=== PATIENT | male | born 1940 | race Caucasian/White ===

== ENCOUNTER 2022-01-28 16:16 | Emergency (ER) | payer OTHER, SELFPAY ==
[2022-01-28] VITALS (9 sets, daily range): BP systolic 111–122; BP diastolic 41–81; PULSE 85–161; RESP 13–20; TEMP 36.4; O2SAT 97–100
--- NOTE | ~2022-01-28 | CT_ITS ---
EXAMINATION: CTA chest PE protocol DATE: 01/28/2022 18:05 INDICATION: Tachycardia, hypotension TECHNIQUE: Computed tomography angiography (CTA) of the chest was performed with 100 mL Omnipaque-350 intravenous contrast timed to evaluate the pulmonary arteries. Coronal maximum intensity projection 3D-reconstructions were created by the technologist. Automated exposure control and iterative reconst ruction technique were employed. Exam dose: 352.48 mGy-cm total exam DLP. COMPARISON: 01/28/2022 AP and lateral chest FINDINGS: There is diagnostic contrast enhancement of the pulmonary arteries and no evidence of pulmo nary embolism. Normal heart size. Coronary artery calcification. No pericardial effusion. Borderline thoracic aortic aneurysm. No hilar or mediastinal mass lesion or lymphadenopathy. No pulmonary infiltrate or consolidation. There is minimal atelectasis in the dependent right lower l obe. No pulmonary suspicious mass is noted. Small sliding hiatal hernia. Normal morphology of the adrenal glands. Subtle indeterminate area of diminished attenuation of the anterolateral hepatic dome, measuring up t o 4 cm dimension on axial view. Calcified splenic granulomas. Thoracic kyphosis. There is anterior fusion at T7-T8 and T9-10. Degenerative change of the lower cervical and thoracic a nd lumbar spine. IMPRESSION: No evidence of pulmonary embolism Reviewed, dictated and finalized at [facility]. Reviewed, dictated and finalized at [facility].
--- NOTE | ~2022-01-28 | XR_ITS ---
EXAMINATION: XR chest 2V DATE: 01/28/2022 16:37 INDICATION: Tachycardia. TECHNIQUE: Frontal and lateral views of the chest were obtained. COMPARISON: None. FINDINGS: The chest demonstrates clear lungs without pneumonia, pleural effusion, or pneumothorax. Th e heart size is normal. There is chronic anterior wedging of multiple thoracic vertebral bodies. IMPRESSION: 1. No acute cardiopulmonary disease. Reviewed, dictated and finalized at [facility].
--- NOTE | 2022-01-28 16:18 | ECG_ITS ---
Measurements Intervals [place] Rate: 146 P: ID: 0 QRS: -8 QRSD: 87 T: 58 QT: 266 QTc: 415 Interpretive Statements ATRIAL FLUTTER/TACHYCARDIA WITH RAPID VENTRICULAR RESPONSE ABNORMAL ECG Electronically Signed On 01-29-2022 9:21:47 CDT by Curt Gonzalez M.D.
--- NOTE | 2022-01-28 16:39 | ED.ARRPALP ---
HPI - Arrhythmia/Palpitations General Chief Complaint: Arrhythmia/Palpitations Stated Complaint: rapid heart beat Time Seen by Provider: 01/28/22 16:28 Source: patient History of Present Illness HPI narrative: Patient presents with palpitations. Reports he was sitting down when he felt his heart rate going fast so he came to the ER for evaluation. Denies any chest pain lightheadedness dizziness or shortness of breath. Denies recent recent fevers, cough, congestion denies any recent hospitalizations prior history of blood clots or prior cardiac history. Related Data Allergies Allergy/AdvReac Type Severity Reaction Status Date / Time No Known Allergies Allergy Verified 09/29/21 10:20 Review of Systems Review of Systems: CONSTITUTIONAL: Denies fever, chills, or sweats. EYES: Denies visual changes, redness, or discharge. ENT: Denies rhinorrhea, congestion, sore throat, or otalgia. CARDIOVASCULAR: Denies chest pain, palpitations, or edema. RESPIRATORY: Denies cough or dyspnea. GASTROINTESTINAL: Denies abdominal pain, nausea, vomiting, or diarrhea. GENITOURINARY: Denies dysuria or hematuria. SKIN: Denies rash or itching. MUSCULOSKELETAL: Denies back pain, joint pain, or myalgia. NEUROLOGIC: Denies headache, numbness, dizziness, or weakness. PSYCHIATRIC: Denies anxiety or depression. All systems reviewed & are unremarkable except as noted in HPI and below PMFSH Past Medical History Medical History DJD (degenerative joint disease) Vitamin D insufficiency Family History Family History Father Family history of heart disease in male family member before age 55, Onset Age: 79 Social History Social History Smoking status: Never smoker Alcohol intake: current Exam Narrative: GENERAL: Well-appearing, well-nourished, and in no acute distress. HEAD: Normocephalic, atraumatic. EYES: PERRLA and EOMI. ENT: Nares clear, no rhinorrhea or epistaxis. Mucous membranes moist. NECK: Supple. No masses. No JVD CHEST: Clear to auscultation. No respiratory distress. No wheezes rales or rhonchi HEART: Regular tachycardia no murmur heard. Normal peripheral pulses. ABDOMEN: Soft, nontender, nondistended, normal active bowel sounds. EXTREMITIES: Normal range of motion. No edema. SKIN: Warm, dry, no rash. NEURO: No focal deficits. Alert and oriented x3. PSYCH: Normal mood and affect. Course Reevaluation(s) Reevaluation #1: Attempted adenosine cardioversion. EKG was consistent with an SVT. Attempted vagal maneuvers which were unsuccessful. Discussed the procedure and consent was obtained. Patient was kept on the hog ribber. 6 mg of diltiazem no change noted on the monitor attempted 12 mg and adenosine which was effective appeared to be a sinus rhythm underneath our heart rate returned to the 140s. Attempted another 12 mg of adenosine again heart rate showed consistent with a sinus rhythm however his heart rate returned to the 140s Date: 01/28/22 Time: 17:37 Reevaluation #2: Patient felt much improved and back to his usual self after Lopressor. Case cussed with Dr. Gonzalez cardiology on-call given patient converted and is comfortable with outpatient monitoring. Patient is also comfortable with outpatient monitoring. Date: 01/28/22 Time: 19:10 Vital Signs Vital signs: Vital Signs Temperature 36.4 C 01/28/22 16:19 Pulse Rate 161 H 01/28/22 16:19 Respiratory Rate 16 01/28/22 16:19 Blood Pressure 111/76 01/28/22 16:19 Pulse Oximetry 99 01/28/22 16:19 Temperature 36.4 C 01/28/22 16:19 Pulse Rate 88 01/28/22 19:01 Respiratory Rate 19 01/28/22 19:01 Blood Pressure 113/41 L 01/28/22 19:01 Pulse Oximetry 98 01/28/22 19:01 MDM - Arrhythmia/Palpitations MDM Narrative Medical decision making narrative: H&P as above, vs initia
[2022-01-28 17:01] LABS: Basophils Absolute Auto 0.1 K/mm3 (0.0-0.1); Basophils Percent Auto 0.7 % (0.2-1.2); Hematocrit 44.2 % (42.0-52.0); Hemoglobin 16.1 g/dL (14.0-18.0); Immature Granulocyte Absolute 0.02 K/mm3 (0.00-0.031); Immature Granulocyte Percent A 0.3 % (0-0.5); Lymphocytes Absolute Auto 1.09 K/mm3 (0.9-3.2); Lymphocytes Percent Auto 15.7 % (18.3-44.2); Mean Corpuscular HGB Conc 36.4 g/dl (32-36); Mean Corpuscular Hemoglobin 34.1 pg (26-34); Mean Corpuscular Volume 93.6 fl (80-100); Mean Platelet Volume 10.4 fl (7.4-10.4); Monocytes Absolute Auto 0.6 K/mm3 (0.1-0.6); Monocytes Percent Auto 8.9 % (2.6-8.5); Neutrophils Absolute Auto 5.2 K/mm3 (1.3-6.7); Neutrophils Percent Auto 74.4 % (45.5-73.1); Platelet Count Result 173 k/mm3 (150-375); Red Blood Count 4.72 M/mm3 (4.6-6.20); White Blood Count 6.9 K/mm3 (4.5-10.0)
[2022-01-28 17:09] LABS: Prothrombin Time 13.1 Seconds (11.1-14.7)
[2022-01-28 17:10] LABS: Alanine Aminotransferase 22 U/L (4-50); Albumin Level 4.5 g/dL (3.5-5.1); Alkaline Phosphatase 42 U/L (38-126); Anion Gap 7 mmol/L (8-16); Aspartate Amino Transferase 30 U/L (17-59); Bilirubin,Total 0.7 mg/dL (0.2-1.3); Blood Urea Nitrogen 29 mg/dL (9-20); Calcium 9.3 mg/dL (8.4-10.2); Carbon Dioxide 27 mmol/L (22-30); Chloride 104 mmol/L (98-107); Estimated Glomerular Filt Rate > 60; Glucose 121 mg/dL (65-110); Lipase 686 U/L (23-300); Partial Thromboplastin Time 27.9 SECONDS (22.3-36.8); Potassium 4.3 mmol/L (3.4-5.0); Sodium 138 mmol/L (137-145)
[2022-01-28] MEDS: ASPIRIN 81 MG CHEWABLE TABLET 324 MG PO (17:16)
[2022-01-28 17:21] LABS: Troponin I < 0.012 ng/mL (0.000-0.034)
[2022-01-28] MEDS: ADENOSINE IV SOLN 6 MG/2 ML VIAL IV PUSH (17:33)
[2022-01-28] MEDS: ADENOSINE IV SOLN 6 MG/2 ML VIAL 12 MG (17:35)
[2022-01-28] MEDS: SODIUM CHLORIDE 0.9% IV 1,000 ML 999 ML (17:40)
[2022-01-28] MEDS: ADENOSINE IV SOLN 6 MG/2 ML VIAL 12 MG IV PUSH (17:41)
--- NOTE | 2022-01-28 17:58 | PC.NURSE ---
Dr. Geiger at bedside for adenosine iv push. Crash cart at bedside. Pt connected to monitor. Pt pre vitals 128/84 heart rate 143. Pt given 6mg Iv adenosine at 1734, pt connected to IV fluids for bolus. No change in heart rate. Dr. Geiger ordered 12mg adenosine IV push. vitals 129/94 post 6mg and heartrate 146. 12mg adenosine push given at 1736, heart rate 140 after. 130/[address] Geiger ordered 12mg IV push for 3rd dose. Pt still stable at this time, no change in mentation or heart rate. 12mg IV push adenosine give at 1741. 132/71 BP and 143 heart rate. Still no change in pt condition. Pt remains stable, no complaints of chest pain or rhythm change. Dr. Geiger informed pt we would still monitor. IV metoprolol ordered.
[2022-01-28] MEDS: METOPROLOL TARTRATE INJ 5 MG/5 ML VIAL IV PUSH (18:15)
[2022-01-28] MEDS: SODIUM CHLORIDE 0.9% IV 1,000 ML 999 ML IV CONT (18:29)
--- NOTE | 2022-01-28 18:47 | ECG_ITS ---
Measurements Intervals [place] Rate: 86 P: 52 [place]: 223 QRS: -5 QRSD: 72 T: 21 QT: 316 QTc: 380 Interpretive Statements SINUS RHYTHM WITH FIRST DEGREE AV BLOCK LOW QRS VOLTAGE IN PRECORDIAL LEADS [QRS DEFLECTION < 1.0 mV IN CHEST LEADS] CANNOT RULE OUT SEPTAL MYOCARDIAL INFARCTION VERSUS LEAD PLACEMENT ABNORMAL ECG Electronically Signed On 01-29-2022 9:25:25 CDT by Curt Gonzalez M.D.
== END 2022-01-28 19:40 | disposition home or self-care (01) ==
PROVIDERS: Emergency Provider Emergency Medicine; PCP Emergency Medicine
DX: I47.1 Supraventricular tachycardia (principal); I44.0 Atrioventricular block, first degree; R94.31 Abnormal electrocardiogram [ECG] [EKG]
CPT/HCPCS: 36415; 71046; 71275; 80053; 83690; 84484; 85025; 85610; 85730; 93005; 96361; 96374; 96375; 99284; A9270; J0153; J7030; Q9967

== ENCOUNTER 2023-03-17 11:21 | Emergency (ER) | payer OTHER, SELFPAY ==
--- NOTE | ~2023-03-17 | CT_ITS ---
EXAMINATION: CT abdomen pelvis w con DATE: 03/17/2023 14:27 INDICATION: Low abdominal pain. Nausea and vomiting. TECHNIQUE: Computed tomography (CT) of the abdomen and pelvis was performed with 100 mL Omnipaque 350 intravenous contrast. Automated exposure control and iterative reconstruction technique were employe d. The dose-length product was 382.34 mGy-cm. COMPARISON: Chest CT 01/28/2022 FINDINGS: The visualized portions of the lung bases demonstrate mild atelectasis. No pleural effusion . The heart size is normal. There are coronary artery calcifications. No pericardial effusion. There is a small sliding hiatal hernia. There is a 5.0 cm mass in right hepatic lobe with interrupted perip heral puddling of contrast, consistent with a hemangioma. Calcifications in the spleen are consistent with old granulomatous disease. The gallbladder, pancreas, and adrenal glands are normal. There is m ild right hydronephrosis and hydroureter. There is mild left hydronephrosis and hydroureter. The blad thomas is distended. The prostate is moderately enlarged. There is diverticulosis of the colon without e vidence of diverticulitis. There are no dilated loops of bowel. The appendix is normal. 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 There are no pathologically enlarged lymph nodes. There i s no free intraperitoneal fluid. There are innumerable small scattered sclerotic lesions in the bones . There is severe thoracic and lumbar spondylosis. There is a chronic compression fracture of T10. IMPRESSION: 1. Widespread sclerotic lesions of bone, new from 01/28/2022, consistent with metastatic disease. 2. Mild bilateral hydronephrosis and hydroureter. Reviewed, dictated and finalized at location [facility]. IMPRESSION: 1. Widespread sclerotic lesions of bone, new from 01/28/2022, consistent with me tastatic disease. 2. Mild bilateral hydronephrosis and hydroureter.
[2023-03-17 11:31] VITALS: BP 152/97; PULSE 73; RESP 16; TEMP 36.1; O2SAT 100
[2023-03-17 11:52] LABS: Basophils Percent Auto 0.4 % (0.2-1.2); Hematocrit 44.1 % (42.0-52.0); Immature Granulocyte Absolute 0.02 K/mm3 (0.00-0.031); Immature Granulocyte Percent A 0.2 % (0-0.5); Lymphocytes Absolute Auto 0.43 K/mm3 (0.9-3.2); Lymphocytes Percent Auto 4.6 % (18.3-44.2); Mean Corpuscular Hemoglobin 33.2 pg (26-34); Mean Corpuscular Volume 97.6 fl (80-100); Mean Platelet Volume 10.8 fl (7.4-10.4); Monocytes Absolute Auto 0.4 K/mm3 (0.1-0.6); Monocytes Percent Auto 4.2 % (2.6-8.5); Neutrophils Absolute Auto 8.4 K/mm3 (1.3-6.7); Neutrophils Percent Auto 90.6 % (45.5-73.1); Platelet Count Result 151 k/mm3 (150-375); Red Blood Count 4.52 M/mm3 (4.6-6.20); Red Cell Distribution Width 12.6 % (11.5-14.5); White Blood Count 9.3 K/mm3 (4.5-10.0)
[2023-03-17 11:57] LABS: Anion Gap 7 mmol/L (8-16); Blood Urea Nitrogen 13 mg/dL (9-20); Calcium 9.3 mg/dL (8.4-10.2); Carbon Dioxide 29 mmol/L (22-30); Chloride 104 mmol/L (98-107); Estimated CRCL calculation 55 ml/min; Estimated Glomerular Filt Rate > 60; Glucose 134 mg/dL (65-110); Potassium 4.1 mmol/L (3.4-5.0); Sodium 140 mmol/L (137-145)
[2023-03-17 11:58] LABS: Alanine Aminotransferase 33 U/L (6-50); Albumin Level 4.8 g/dL (3.5-5.1); Alkaline Phosphatase 213 U/L (38-126); Aspartate Amino Transferase 35 U/L (17-59); Bilirubin,Total 1.1 mg/dL (0.2-1.3); Lipase 220 U/L (23-300)
[2023-03-17 12:16] LABS: Appearance Urine Clear (Clear); Blood Urine 2+ (Negative); Color Urine Yellow (Yellow); Glucose Urine UA Negative (Negative); Ketones Urine Negative (Negative); Nitrate Urine Negative (Negative); Protein Urine 1+ mg/dL (Negative); Specific Grav Ur 1.018 (1.001-1.035); pH Urine 8.5 (5.0-9.0)
[2023-03-17 12:17] LABS: Bacteria Urine None Seen /hpf; Bilirubin Urine Negative (Negative); Leukocyte Esterase Ur Negative LEU/UL (Negative); Non Pathogenic Casts 0-2; RBC Urine 51-100 /hpf (0-2); Squamous Epithelial Cell Urine None seen /hpf (Few); Urobilinogen Urine 0.2 mg/dL (<2.0); WBC Urine 0-5 /hpf
[2023-03-17 12:19] LABS: Add Urine Microscopic? YES
--- NOTE | 2023-03-17 13:45 | ED.ABDPAIN ---
HPI - Abdominal Pain General Chief Complaint: Abdominal Pain Stated Complaint: abd pain Time Seen by Provider: 03/17/23 13:05 History of Present Illness HPI narrative: 83-year-old male presented to the emergency department for evaluation of bilateral lower abdominal pain. Patient states pain started approximately 930 last night. Patient does report associated nausea and vomiting. Patient states he normally has bowel movements every 2 to 3 days but has not been passing any stool since the pain started, this is not abnormal for him. Patient states he has not been passing flatus. Patient denies any prior history of abdominal surgeries. Patient denies any prior history of small bowel obstruction. Patient denies any prior history of kidney stones and denies any current hematuria or pain with urination. Related Data Home Medications Medication Instructions Recorded Confirmed apixaban 5 mg tablet (Eliquis) 5 mg PO .QD 03/30/22 Allergies Allergy/AdvReac Type Severity Reaction Status Date / Time No Known Allergies Allergy Verified 09/28/22 10:28 Review of Systems Review of Systems: All systems reviewed & are unremarkable except as noted in HPI and below PMFSH Past Medical History Medical History DJD (degenerative joint disease) Vitamin D insufficiency Family History Family History Father Family history of heart disease in male family member before age 55, Onset Age: 79 Social History Social History Smoking status: Never smoker Second hand tobacco smoke exposure: No Alcohol intake: current Substance use: unknown Exam Narrative: APPEARANCE: Well appearing, no pain, no distress, well-nourished. HEAD: normocephalic, atraumatic. EYES: PERRLA/EOMI, conjunctivae clear. NOSE: Normal no drainage NECK: Supple. No adenopathy, no masses. RESPIRATORY: Airway patent, respirations nonlabored. Clear to auscultation bilaterally, no rales, rhonchi, wheezing. CARDIOVASCULAR: Regular rate and rhythm without murmurs rubs or gallops. ABDOMINAL: Soft, nondistended normal bowel sounds minor tenderness to bilateral lower abdomen. MUSCULOSKELETAL: Moves all extremities. Strength/ROM intact, No edema, No calf tenderness. NEURO: Alert. Cranial nerves II through XII intact. Good gait. Good coordination SKIN: Warm, dry. Normal Color Course Course Emergency Course: 83-year-old male presented the emergency department for evaluation of lower abdominal pain. Patient was afebrile with no leukocytosis. Patient's chemistries were similar to his baseline. UA did show some hematuria with no underlying evidence of infection. CT scan did show widespread sclerotic lesions of bone, new from 01/28/2022, consistent with metastatic disease, along with mild bilateral hydronephrosis and hydroureter. Patient denies any prior history of underlying cancer. Patient family are updated the results of the CT scan showing the metastatic lesions. Patient did feel improved with treatment in the emergency department and states his abdominal pain is significantly improved and he is comfortable to plan with discharge and close follow-up. I talked to the patient's primary care physician and the primary care physician will help to schedule additional outpatient studies to further evaluate the metastatic lesions. Patient was also referred to urology for the enlarged prostate and hydronephrosis. On bedside bladder scan patient had no significant postvoid residual urine. Patient was started on Flomax while in the ED. All questions and concerns were addressed and patient family are comfortable with the plan for discharge and close follow-up Vital Signs Vital signs: Vital Signs Temperature 96.9 F L 03/17/23 11:31 Pulse Rate 73 03/17/23 11:31 Respiratory Rate 16 03/17/23 11
[2023-03-17] MEDS: ONDANSETRON INJ 4 MG/2 ML VIAL IV PUSH (14:06)
[2023-03-17] MEDS: HYDROmorphone HCL INJ (*CRX) 1 MG/ML SYR 0.5 MG IV PUSH (14:06)
[2023-03-17] MEDS: TAMSULOSIN HCL 0.4 MG CAPSULE PO (16:25)
== END 2023-03-17 16:29 | disposition home or self-care (01) ==
PROVIDERS: Emergency Medicine; Emergency Provider Emergency Medicine; PCP Emergency Medicine
DX: N40.0 Benign prostatic hyperplasia without lower urinary tract symptoms (principal); R10.32 Left lower quadrant pain; R10.31 Right lower quadrant pain; M89.9 Disorder of bone, unspecified; E55.9 Vitamin D deficiency, unspecified; Z79.01 Long term (current) use of anticoagulants; N13.30 Unspecified hydronephrosis
CPT/HCPCS: 36415; 74177; 80053; 81001; 83690; 85025; 96374; 96375; 99284; A9270; J1170; J2405; Q9967

== ENCOUNTER 2023-03-30 12:08 | Outpatient (CLI) | payer OTHER, SELFPAY ==
--- NOTE | ~2023-03-30 | PE_ITS ---
EXAMINATION: PET skull to mid thigh DATE: 03/30/2023 14:13 INDICATION: Abnormal findings on diagnostic imaging with widespread sclerotic lesions of bone consist ent with metastatic disease on prior CT of the abdomen and pelvis. TECHNIQUE: Blood glucose level was 112 mg/dL. 9.69 mCi of 18-fluorodeoxyglucose (18-FDG) was administ ered i.v. Low dose computed tomography (CT) images were acquired from the base of the brain to the pr oximal thighs for attenuation correction and anatomic localization. Positron emission tomography (PET ) images were acquired in the same distribution beginning 54 minutes after injection. Images includin g fused PET/CT images were reconstructed in axial, coronal, and sagittal planes. Automated exposure c ontrol technique was employed. The dose-length product was 516.08mGy-cm. COMPARISON: None FINDINGS: Head/neck: There is symmetric increased activity in the oral cavity, palatine tonsils, laryngeal muscles and ocu lar muscles without CT correlate, likely physiologic. No pathologically enlarged or FDG avid cervical lymphadenopathy. Chest: Calcified right lower lobe nodule and calcified right hilar and mediastinal lymph nodes consistent wi th old granulomatous disease. Mild dependent atelectasis in the bilateral lower lobes. No suspicious pulmonary nodules, pneumonia, pulmonary edema or pleural effusion. Heart size is normal. Atherosclero tic coronary artery calcifications. No pericardial effusion. Ectatic ascending thoracic aorta measuri ng up to 4.2 cm in maximal diameter. No pathologically enlarged or FDG avid thoracic lymphadenopathy. Abdomen/pelvis/proximal thighs: Physiologic renal accumulation and excretion of FDG activity in the kidneys, bladder and along portio ns of ureters. There is mild to moderate bilateral hydroureteronephrosis which suggests bladder outle t obstruction as etiology potentially due to the enlarged prostate which measures 5.0 x 4.3 cm. Adriana l degree and heterogenous pattern of increased uptake throughout the liver without a dominant FDG justin d lesion. Subtle decreased FDG activity similar to the blood pool associated with a 5 cm mass at the dome of the right hepatic lobe with contrast enhancement pattern on prior CT most consistent with a h emangioma. The gallbladder, pancreas and bilateral adrenal glands are normal. Several splenic calcifi c lesions consistent with old granulomatous disease. Mild uptake scattered throughout the bowels with out radiologic correlate, also likely physiologic. There is mild colonic diverticulosis with a sigmoi d predominance. There is no adjacent inflammatory change to suggest diverticulitis. No other abnorma l foci of increased soft tissue FDG uptake or pathologically enlarged lymphadenopathy in the abdomen, pelvis or proximal thighs. Musculoskeletal: Again seen are innumerable tiny sclerotic bone lesions predominantly in the spine, sternum, ribs and pelvis several of which appear to demonstrate slightly increased FDG activity relative to the surroun ding bone, but many of which are without discernible correlate on PET imaging likely due to their sma ll size. The most intense uptake is seen at the left posterior iliac spine with maximal SUV of 3.5. IMPRESSION: 1. Innumerable small sclerotic bone lesions, several with FDG uptake slightly above baseline of the s urrounding bone which remain suspicious for metastatic disease. No concerning FDG avid primary lesion identified. There is however persistent mild to moderate bilateral hydronephrosis consistent with bl adder outlet obstruction likely resulting from the enlarged prostate which raises possibility of pros fleming cancer as the primary malignancy. Of note unlike PSMA PET which has a high sensitivity for prost ate cancer, FDG PET has a relatively low sensitivity for prostate cancer particularly for lower grade cancers. Would recommend correlation with PSA level and urology consultation for consid
[2023-03-30 12:41] LABS: Glucose Point of Care 112 mg/dl (65-105)
== END 2023-03-30 12:09 | disposition home or self-care (01) ==
PROVIDERS: PCP Emergency Medicine; Visit Provider Emergency Medicine
DX: R93.5 Abnormal findings on diagnostic imaging of other abdominal regions, including retroperitoneum (principal)
CPT/HCPCS: 78815; A9552

== ENCOUNTER 2023-05-15 12:10 | Outpatient (CLI) | payer OTHER, SELFPAY ==
[2023-05-15 12:22] LABS: Basophils Percent Auto 0.6 % (0.2-1.2); Hematocrit 43.2 % (42.0-52.0); Immature Granulocyte Absolute 0.01 K/mm3 (0.00-0.031); Immature Granulocyte Percent A 0.2 % (0-0.5); Lymphocytes Absolute Auto 1.12 K/mm3 (0.9-3.2); Lymphocytes Percent Auto 17.8 % (18.3-44.2); Mean Corpuscular HGB Conc 34.7 g/dl (32-36); Mean Corpuscular Hemoglobin 33.8 pg (26-34); Mean Corpuscular Volume 97.3 fl (80-100); Mean Platelet Volume 10.3 fl (7.4-10.4); Monocytes Absolute Auto 0.9 K/mm3 (0.1-0.6); Monocytes Percent Auto 13.8 % (2.6-8.5); Neutrophils Absolute Auto 4.3 K/mm3 (1.3-6.7); Neutrophils Percent Auto 67.6 % (45.5-73.1); Platelet Count Result 143 k/mm3 (150-375); Red Blood Count 4.44 M/mm3 (4.6-6.20); Red Cell Distribution Width 12.7 % (11.5-14.5); White Blood Count 6.3 K/mm3 (4.5-10.0)
[2023-05-15 12:51] LABS: Alanine Aminotransferase 33 U/L (6-50); Albumin Level 4.5 g/dL (3.5-5.1); Alkaline Phosphatase 803 U/L (38-126); Anion Gap 7 mmol/L (8-16); Aspartate Amino Transferase 37 U/L (17-59); Bilirubin,Total 0.7 mg/dL (0.2-1.3); Blood Urea Nitrogen 22 mg/dL (9-20); Calcium 9.1 mg/dL (8.4-10.2); Carbon Dioxide 27 mmol/L (22-30); Chloride 103 mmol/L (98-107); Estimated Glomerular Filt Rate > 60; Glucose 98 mg/dL (65-110); Potassium 4.8 mmol/L (3.4-5.0); Sodium 137 mmol/L (137-145)
[2023-05-17 09:49] LABS: Immunoglobulin A 87 mg/dL (70-400); Immunoglobulin G 1159 mg/dL (700-1600); Immunoglobulin M 130 mg/dL (40-230)
[2023-05-18 09:21] LABS: Kappa\\Lambda Light Chains 0.56 (0.26-1.65); Lambda Light Chain 34.8 mg/L (5.7-26.3)
[2023-05-18 13:31] LABS: Abnormal Protein Band 1 0.6 g/dL; Albumin 4.3 g/dL (3.8-4.8); Alpha 1 Globulin 0.3 g/dL (0.2-0.3); Alpha 2 Globulin 0.7 g/dL (0.5-0.9); Beta 1 Globulin 0.4 g/dL (0.4-0.6)
== END 2023-05-15 12:11 | disposition home or self-care (01) ==
LOC: ANHLAB 12:11
PROVIDERS: PCP Emergency Medicine; Visit Provider Internal Medicine Hematology & Oncology
DX: M89.9 Disorder of bone, unspecified (principal)
CPT/HCPCS: 36415; 80053; 82784; 83883; 84155; 84165; 85025

== ENCOUNTER 2023-07-28 12:20 | Emergency (ER) | payer OTHER, SELFPAY ==
--- NOTE | ~2023-07-28 | XR_ITS ---
Clinical Indication: Chest pain PA and lateral views of the chest: Comparison: 01/28/2022 Findings: The lungs are clear, without evidence of focal consolidation or pleural effusion. Cardiome diastinal silhouette is within normal limits. Suspected extensive sclerotic change of the osseous str uctures. There are mild compression deformities of the lower lumbar spine. Impression: Clear lungs. Suspected diffuse osseous sclerotic change. Correlate for diffuse osteoblastic metastatic disease or other metabolic bone disease. Mild compression deformities of the lower thoracic spine. Reviewed, dictated and finalized at location M. Impression: Clear lungs. Suspected diffuse osseous sclerotic change. Correlate for diffuse osteoblastic metastatic disease or other metabolic bone disease. Mild compression deformities of the lower thoracic spine.
[2023-07-28 12:33] VITALS: BP 103/80; PULSE 79; RESP 16; TEMP 36.4; O2SAT 99
--- NOTE | 2023-07-28 12:50 | ED.CHESTPAIN ---
HPI - Chest Pain General Chief Complaint: Chest Pain Stated Complaint: CHEST PAIN/HURTS TO BREATHE Time Seen by Provider: 07/28/23 12:38 Source: patient, RN notes reviewed and old records reviewed Mode of arrival: ambulatory Limitations: no limitations History of Present Illness HPI narrative: 83 year old male accompanied by presents to express care with complaints of chest pain across his chest and also across his back when he takes a deep breath with productive cough for the past 6-7 days. He also states he has some double vision from his left eye at times when he looks down.. Patient is pale in color and thin reports that he has lost at least 20 lbs in past 2 months and his appetite is down and he just isn't able to eat because of nausea. He reports that he saw his GI doctor and he is under treatment for colitis and is taking medication. Patient reports he has nausea medication by tastes awful and doesn't help. Patient reports that he has been sent to oncologist and urologist since March for suspicious lesions on his bones. The urologist stated no prostate cancer and his PSA was normal. He reports that oncologist suspect some bone or blood cancer. He states that he has not contacted his PCP with his complaints. MD complaint: other (painful to take a deep breath ) Pertinent past history: other (a fib, abnormal lesions on bones) Onset (ago): day(s) (6-7 days) Timing of current episode: other (with deep breathing) Onset: during rest Pain location: other (across chest and back) Exacerbating factors: other (deep breathing) Treatment prior to arrival: other (ADVIL) Related Data Home Medications Medication Instructions Recorded Confirmed apixaban 5 mg tablet (Eliquis) 5 mg PO DAILY 03/30/22 07/29/23 balsalazide 750 mg capsule 2,250 mg PO TID 07/28/23 07/29/23 famotidine 40 mg tablet 40 mg PO HS 07/28/23 07/29/23 metoprolol succinate 25 mg 25 mg PO DAILY 07/28/23 07/29/23 tablet,extended release 24 hr celecoxib 200 mg capsule 200 mg PO DAILY 07/29/23 07/29/23 hydrocortisone 2.5 % topical cream 1 applic topical BID PRN Itching 07/29/23 07/29/23 with perineal applicator Allergies Allergy/AdvReac Type Severity Reaction Status Date / Time No Known Allergies Allergy Verified 07/29/23 06:31 Review of Systems Review of Systems: CONSTITUTIONAL: Denies fever, chills, or sweats. EYES: reports that left eye has distorted vision at times when he looks downward,no redness, or discharge. ENT: Denies rhinorrhea, congestion, sore throat, or otalgia. CARDIOVASCULAR: Reports pain across chest and and across back with deep breathing. no palpitations, or edema. RESPIRATORY: reports cough reports dyspnea with minimal exertion. GASTROINTESTINAL: abdominal pain, nausea, no vomiting, or diarrhea. GENITOURINARY: Denies dysuria or hematuria. SKIN: Denies rash or itching. MUSCULOSKELETAL: reports back pain,no joint pain, or myalgia. NEUROLOGIC: Denies headache, numbness, or weakness. PSYCHIATRIC: Denies anxiety or depression. All systems reviewed & are unremarkable except as noted in HPI and belo
== END 2023-07-28 13:24 | disposition short-term general hospital (02) ==
PROVIDERS: Emergency Provider Registered Nurse; PCP Emergency Medicine
DX: R07.9 Chest pain, unspecified (principal); Z87.891 Personal history of nicotine dependence; I48.91 Unspecified atrial fibrillation; K22.70 Barrett's esophagus without dysplasia; K21.9 Gastro-esophageal reflux disease without esophagitis
CPT/HCPCS: 71046; 99213; G0463

== ENCOUNTER 2023-07-28 13:48 | Observation (INO) | payer OTHER, SELFPAY ==
[2023-07-28] VITALS (52 sets, daily range): BP systolic 104–129; BP diastolic 61–84; PULSE 78–104; RESP 13–32; TEMP 36.9–37.1; O2SAT 92–100
--- NOTE | ~2023-07-28 | CT_ITS ---
EXAMINATION: CTA chest PE abdomen pel DATE: 07/28/2023 15:41 INDICATION: Pleuritic chest pain. Upper abdominal pain. TECHNIQUE: Computed tomography angiography (CTA) of the chest was performed with 100 mL Omnipaque-350 intravenous contrast timed to evaluate the pulmonary arteries. Coronal maximum intensity projection 3D-reconstructions were created by the technologist. Computed tomography (CT) of the abdomen and pelv is was performed with intravenous contrast. Automated exposure control and iterative reconstruction t echnique were employed. The dose-length product was 543.56 mGy-cm. COMPARISON: CT abdomen and pelvis 03/17/2023 FINDINGS: CTA chest: There is mild scarring at the lung apices. There are small pleural effusions. There is mil d dependent atelectasis bilaterally. A calcified right lung nodule and calcified right hilar and medi astinal lymph nodes are consistent with old granulomatous disease. The heart size is normal. No peric ardial effusion. There is no pulmonary embolus. CT abdomen and pelvis: There is a 4.9 cm mass in the liver with interrupted peripheral puddling of co ntrast, consistent with a hemangioma. Calcifications in the liver and spleen are consistent with old granulomatous disease. The gallbladder, pancreas, adrenal glands, and kidneys are normal. The prostat e is moderately enlarged. There is diverticulosis of the colon without evidence of diverticulitis. Th e appendix is normal. There are no dilated loops of bowel. There is calcified atherosclerosis of the aorta and many of the other arteries. 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 There are no pathologically enlarged lymph nodes. There is a small volume of pelvic ascites. There is wides pread sclerosis involving all bones, consistent with metastatic disease. IMPRESSION: 1. Widespread sclerosis of all bones, worsened from 03/17/2023, consistent with metastatic disease. 2. Small pleural effusions. 3. No pulmonary embolus. 4. Small volume of ascites. 5. 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 Reviewed, dictated and finalized at location A. IMPRESSION: 1. Widespread sclerosis of all bones, worsened from 03/17/2023, consistent with m etastatic disease. 2. Small pleural effusions. 3. No pulmonary embolus. 4. Small volume of ascites. 5. 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
--- NOTE | ~2023-07-28 | XR_ITS ---
EXAMINATION: XR chest 1V INDICATION: Chest pain TECHNIQUE: PA view of the chest is obtained. COMPARISON: 1243 hours FINDINGS: The lungs are free of acute opacities. No pleural effusion or pneumothorax. The cardiomedia stinal silhouette is normal. Again noted are widespread sclerotic osseous lesions, consistent with me tastatic disease. IMPRESSION: 1. No acute cardiopulmonary abnormality. 2. Widespread sclerotic osseous lesions suspicious for metastatic disease. Reviewed, dictated and finalized at location F.
--- NOTE | 2023-07-28 13:51 | ECG_ITS ---
Measurements Intervals [place] Rate: 84 P: [place]: 0 QRS: 10 QRSD: 66 T: 51 QT: 341 QTc: 405 Interpretive Statements SINUS RHYTHM FREQUENT ATRIAL PREMATURE COMPLEXES BASELINE ARTIFACT- I, II, AVR, AVL, AVF ABNORMAL ECG COMPARED TO ECG 01/28/2022 18:55:51 ATRIAL PREMATURE COMPLEXES NOW PRESENT Electronically Signed On 07-28-2023 20:36:45 CDT by Julio Cesar Anguiano D.O.
[2023-07-28 14:20] LABS: Basophils Percent Auto 0.3 % (0.2-1.2); Hematocrit 43.9 % (42.0-52.0); Hemoglobin 14.7 g/dL (14.0-18.0); Immature Granulocyte Absolute 0.02 K/mm3 (0.00-0.031); Immature Granulocyte Percent A 0.3 % (0-0.5); Immature Platelet Fraction Pct 5.5 % (0.9-11.2); Lymphocytes Absolute Auto 0.97 K/mm3 (0.9-3.2); Lymphocytes Percent Auto 13.4 % (18.3-44.2); Mean Corpuscular HGB Conc 33.5 g/dl (32-36); Mean Corpuscular Hemoglobin 33.1 pg (26-34); Mean Corpuscular Volume 98.9 fl (80-100); Mean Platelet Volume 10.6 fl (7.4-10.4); Monocytes Absolute Auto 0.9 K/mm3 (0.1-0.6); Monocytes Percent Auto 12.2 % (2.6-8.5); Neutrophils Absolute Auto 5.3 K/mm3 (1.3-6.7); Neutrophils Percent Auto 73.8 % (45.5-73.1); Platelet Count Result 130 k/mm3 (150-375); Red Blood Count 4.44 M/mm3 (4.6-6.20); Red Cell Distribution Width 13.2 % (11.5-14.5); White Blood Count 7.2 K/mm3 (4.5-10.0)
[2023-07-28 14:22] LABS: INR 1.3; Prothrombin Time 17.1 Seconds (11.1-14.7)
[2023-07-28 14:23] LABS: Partial Thromboplastin Time 31.3 SECONDS (22.3-36.8)
[2023-07-28 14:24] LABS: Alanine Aminotransferase 17 U/L (6-50); Albumin Level 4.3 g/dL (3.5-5.1); Alkaline Phosphatase 887 U/L (38-126); Anion Gap 6 mmol/L (8-16); Aspartate Amino Transferase 36 U/L (17-59); Bilirubin,Total 1.1 mg/dL (0.2-1.3); Blood Urea Nitrogen 19 mg/dL (9-20); Calcium 8.8 mg/dL (8.4-10.2); Carbon Dioxide 26 mmol/L (22-30); Chloride 102 mmol/L (98-107); Estimated CRCL calculation 60 ml/min; Estimated Glomerular Filt Rate > 60; Glucose 112 mg/dL (65-110); Lipase 392 U/L (23-300); Potassium 5.1 mmol/L (3.4-5.0); Sodium 134 mmol/L (137-145)
[2023-07-28 14:39] LABS: Troponin I 0.284 ng/mL (0.000-0.034)
[2023-07-28] MEDS: SODIUM CHLORIDE 0.9% IV 1,000 ML 999 ML IV CONT (15:20)
--- NOTE | 2023-07-28 15:26 | PC.NURSE ---
pt taken for CT at this time
--- NOTE | 2023-07-28 15:44 | PC.NURSE ---
pt returned to room 22 at this time
--- NOTE | 2023-07-28 16:18 | ED.CHESTPAIN ---
HPI - Chest Pain General Chief Complaint: Chest Pain Stated Complaint: cp Time Seen by Provider: 07/28/23 14:51 Source: patient and RN notes reviewed Mode of arrival: ambulatory Limitations: no limitations History of Present Illness HPI narrative: This is an 83 year old male who presents for evaluation of chest pain. PAtient reports pain across his upper chest and midsternal chest pain with coughing and deep breath. He states this has been presents for 6-7s. He has nonproductive cough. He reports nausea and poor appetite for 1 month. He denies fever, chills, leg swelling or calf pain. He has seen Dr. Casillas, process supervisor , in the past for rapid heart rate, and he was prescribed eliquis. He denies any recent trauma. Denies history CAD or stents. He reports he has been having abdominal pain and nausea for 2 months. This has caused evaluation to rule out cancer as he also reports 20 pound weight loss in 2 months, and he has multiple bone lesions concerning for metastatic disease. Related Data Home Medications Medication Instructions Recorded Confirmed apixaban 5 mg tablet (Eliquis) 5 mg PO .QD 03/30/22 07/28/23 balsalazide 750 mg capsule 750 mg PO DAILY 07/28/23 07/28/23 buspirone 5 mg tablet 5 mg PO BID 07/28/23 07/28/23 famotidine 40 mg tablet 40 mg PO DAILY 07/28/23 07/28/23 metoprolol succinate 25 mg 25 mg PO DAILY 07/28/23 07/28/23 tablet,extended release 24 hr Allergies Allergy/AdvReac Type Severity Reaction Status Date / Time No Known Allergies Allergy Verified 07/28/23 12:29 Review of Systems Constitutional: Constitutional: Reports fatigue and Denies weakness Comments: 20 pound weight loss in 2 months ENT: Reports nasal congestion Cardiovascular: Cardiovascular: Reports chest pain, Denies syncope, Denies rapid heart rate, Denies irregular heart rhythm, Denies leg edema and Denies dyspnea Respiratory: Respiratory: Denies chest congestion, Reports cough, Denies hemoptysis and Denies excessive phlegm production Gastrointestinal: Gastrointestinal: Reports abdominal pain, Denies hematochezia, Denies diarrhea, Reports nausea and Denies vomiting Genitourinary: Genitourinary: Denies hematuria, Denies dysuria, Denies penile discharge and Denies testicular pain Musculoskeletal: Musculoskeletal: Reports back pain, Denies joint swelling, Denies loss of height and Denies muscle weakness Neurologic: Denies syncope, Denies focal weakness and Denies weakness PMFSH Past Medical History Medical History (Updated 07/28/23 @ 22:12 by Gracie Vo MD) Afib Pittman esophagus DJD (degenerative joint disease) Gastro-esophageal reflux disease without esophagitis Vitamin D insufficiency Surgical History Surgical History (Updated 07/28/23 @ 16:22 by Gracie Vo MD) H/O shoulder surgery Family History Family History Father Family history of heart disease in male family member before age 55, Onset Age: 79 Social History Social History Smoking status: Never smoker Second hand tobacco smoke exposure: No Alcohol intake: current Substance use: unknown Exam Const: General: no acute distress and alert Nutritional Appearance: thin Orientation/consciousness: patient oriented x3 HENMT: Head: normal to inspection Eyes: EOM: EOMs intact bilaterally Resp: Effort & Inspection: normal respiratory effort Auscultation: clear to auscultation bilaterally Cardio: Rate: regular rate Rhythm: regular rhythm Heart sounds: no murmurs GI: GI Palp: Yes Soft to palpation and Yes Tenderness to palpation present (GI) (LUQ pain) Auscultation: normal bowel sounds Skin: General skin exam: normal color Neuro: General: patient oriented x3, moves all extremities and CN's II-XI intact bilaterally Cranial nerves: Yes Nystagmus not present Speech: normal speech Gait exam (Neuro): Normal gai
[2023-07-28 17:29] LABS: Troponin I 0.264 ng/mL (0.000-0.034)
--- NOTE | 2023-07-28 20:11 | PC.NURSE ---
Per pt request, Vandana, pt , was contacted at [phone] to be updated on pt status.
--- NOTE | 2023-07-28 20:26 | PM.IMHP ---
H&P: HPI History of Present Illness Date/Time: 07/28/23 20:26 Chief Complaint: CHEST PAIN Narrative: THIS IS AN 83-YEAR-OLD MALE WITH PAST MEDICAL HISTORY SIGNIFICANT FOR ATRIAL FIBRILLATION, RAY'S ESOPHAGUS, DEGENERATIVE JOINT DISEASE, GERD. PATIENT PRESENTS TO THE EMERGENCY ROOM DUE TO AT CHEST PAIN WITH DEEP INSPIRATION PAIN GOES AROUND HIS RIBCAGE IT IS NOT RELATED TO FOOD INTAKE NO COUGH NO FEVERS NO CHILLS NO RIGORS NO NAUSEA NO VOMITING. PATIENT DOES HAD EXTENSIVE WORKUP FOR CANCER AND HE WAS TOLD THAT TESTS CAME BACK NORMAL. WAS TRYING ADVIL AT HOME BUT DID NOT IMPROVE. HAS HAD POOR APPETITE AND WEIGHT LOSS OF ROUGHLY 20 LB DENIES DYSPHAGIA OR ODYNOPHAGIA HAS HAD DECREASED PER ORALLY INTAKE WELL. MULTIPLE IMAGING STUDIES SHOWED A SCLEROTIC BONE LESIONS PRESENT ON CHEST X-RAY AND CT OF CHEST Clinical Indication: Chest pain ?PA and lateral views of the chest: Comparison: 01/28/2022 Findings: The lungs are clear, without evidence of focal consolidation or pleural effusion.? Cardiomediastinal silhouette is within normal limits. Suspected extensive sclerotic change of the osseous structures. There are mild compression deformities of the lower lumbar spine. ? Impression: ? Clear lungs. Suspected diffuse osseous sclerotic change. Correlate for diffuse osteoblastic metastatic disease or other metabolic bone disease. Mild compression deformities of the lower thoracic spine. EXAMINATION: XR chest 1V INDICATION: Chest pain TECHNIQUE: PA view of the chest is obtained. COMPARISON: 1243 hours FINDINGS: The lungs are free of acute opacities. No pleural effusion or pneumothorax. The cardiomediastinal silhouette is normal. Again noted are widespread sclerotic osseous lesions, consistent with metastatic disease. IMPRESSION: 1. No acute cardiopulmonary abnormality. 2. Widespread sclerotic osseous lesions suspicious for metastatic disease. EXAMINATION: CTA chest PE abdomen pel DATE: 07/28/2023 15:41 INDICATION: Pleuritic chest pain. Upper abdominal pain. TECHNIQUE: Computed tomography angiography (CTA) of the chest was performed with 100 mL Omnipaque-350 intravenous contrast timed to evaluate the pulmonary arteries. Coronal maximum intensity projection 3D-reconstructions were created by the technologist. Computed tomography (CT) of the abdomen and pelvis was performed with intravenous contrast. Automated exposure control and iterative reconstruction technique were employed. The dose-length product was 543.56 mGy-cm. COMPARISON: CT abdomen and pelvis 03/17/2023 FINDINGS: CTA chest: There is mild scarring at the lung apices. There are small pleural effusions. There is mild dependent atelectasis bilaterally. A calcified right lung nodule and calcified right hilar and mediastinal lymph nodes are consistent with old granulomatous disease. The heart size is normal. No pericardial effusion. There is no pulmonary embolus. CT abdomen and pelvis: There is a 4.9 cm mass in the liver with interrupted peripheral puddling of contrast, consistent with a hemangioma. Calcifications in the liver and spleen are consistent with old granulomatous disease. The gallbladder, pancreas, adrenal glands, and kidneys are normal. The prostate is moderately enlarged. There is diverticulosis of the colon without evidence of diverticulitis. The appendix is normal. There are no dilated loops of bowel. There is calcified atherosclerosis of the aorta and many of the other arteries. 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 There are no pathologically enlarged lymph nodes. There is a small volume of pelvic ascites. There is widespread sclerosis involving all bones, consistent with metastatic disease. IMPRESSION: 1. Widespread sclerosis of all bones, worsened from 03/17/2023, consistent with metastatic disease. 2. Small pleural effusions. 3. No pulmonary embolus. 4. Small volume of ascites. 5. 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
--- NOTE | 2023-07-28 22:01 | PC.NURSE ---
Report received from BUCK Josue. Assumed care of patient at this time. Patient is boarded in the ER awaiting bed placement.
--- NOTE | 2023-07-28 22:02 | PC.NURSE ---
Report given to BUCK Carrington with no questions/concerns. Care of pt transferred.
--- NOTE | 2023-07-28 22:38 | PC.NURSE ---
Patient states he has a headache 01/20 requesting excedrin. Hospitalist paged for new orders.
[2023-07-28] MEDS: ACETAMINOPHEN/ASPIRIN/CAFFEINE 250-250-65 MG TABLET 1 TABLET PO (23:04)
[2023-07-29] VITALS (33 sets, daily range): BP systolic 112–130; BP diastolic 74–95; PULSE 84–135; RESP 16–28; TEMP 36.1–36.5; O2SAT 90–100; BMI 23.6
--- NOTE | 2023-07-29 06:01 | ADMGEN ---
This patient, Jarred Davis, was admitted to IMU Room 214-01 on 07/29/23 at 0542. Patient/family oriented to hospital policies and general routines including ID bracelet, bed and alarms, visiting hours, pain management, procedures, bathroom and other care routines, personal items, smoking policy, room service/diet, and visiting hours. Information on how to activate the Rapid Response Team has been discussed. Patient/Family are encouraged to report perceived risks to care and to ask questions if they do not understand what they are told or what they should do.
--- NOTE | 2023-07-29 11:02 | PM.DS ---
DS: Admitting Diagnosis Discharge Date 07/29/2020 Admitting Diagnosis Sharp chest pain DS: Discharge Diagnosis Discharge Diagnosis (1) Metastatic cancer: Code(s): C79.9 - Secondary malignant neoplasm of unspecified site Status: Acute (2) Chest pain of unknown etiology: Code(s): R07.9 - Chest pain, unspecified Status: Acute (3) Elevated alkaline phosphatase level: Code(s): R74.8 - Abnormal levels of other serum enzymes Status: Acute DS: Summary Hospital Course Hospital Course: 83-year-old male was admitted with sharp chest pain that worsens on deep inspiration. Past medical history significant for atrial fibrillation, Pittman's esophagus, degenerative joint disease. Patient reports poor appetite and weight loss of roughly [address] OF CHEST 1. Widespread sclerosis of all bones, worsened from 03/17/2023, consistent with metastatic disease. 2. Small pleural effusions. 3. No pulmonary embolus. 4. Small volume of ascites. 5. 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 I had an extensive discussion with the patient about his prognosis and I provided him with the options of talking to an oncologist for palliative chemo and radiation therapy versus comfort care. Patient understands the prognosis and the severity of his disease. He does not want to pursue any treatment. He wants to pursue hospice at home. He is being discharged home with home hospice Time Spent with Patient Time attestation: Total time spent providing and/or coordinating discharge services: DS: Data Data Completed and Pending Labs on day of discharge: Labs from last 24 hours 07/28/23 07/28/23 07/28/23 20:52 16:59 13:59 WBC 7.2 RBC 4.44 L Hgb 14.7 Hct 43.9 MCV 98.9 MCH 33.1 MCHC 33.5 RDW 13.2 Plt Count 130 L MPV 10.6 H Immature Gran % (Auto) 0.3 Neut % (Auto) 73.8 H Lymph % (Auto) 13.4 L Cobb % (Auto) 12.2 H Eos % (Auto) 0.0 Baso % (Auto) 0.3 Lymph # (Auto) 0.97 Cobb # (Auto) 0.9 H Eos # (Auto) 0.0 Baso # (Auto) 0.0 Abs Immat Gran (auto) 0.02 Absolute Neuts (auto) 5.3 Absolute Nucleated RBC 0.0 Nucleated RBC % 0.0 % Immature Plt Fraction 5.5 PT 17.1 H INR 1.3 APTT 31.3 Sodium 134 L Potassium 5.1 H Chloride 102 Carbon Dioxide 26 Anion Gap 6 L BUN 19 Creatinine 0.70 Estim Creat Clear Calc 60 Estimated GFR > 60 Glucose 112 H Calcium 8.8 Total Bilirubin 1.1 AST 36 ALT 17 Alkaline Phosphatase 887 H Troponin I 0.230 H* 0.264 H* 0.284 H* Total Protein 7.0 Albumin 4.3 Lipase 392 H Discharge Plan Discharge Consulting providers: Curt Gonzalez Discharging Clinician: Adam Dunlap Anticipated Discharge Date/Time: 07/29/23 10:58 Patient Disposition: Hospice - Home Activity: no preference Diet: regular Patient Instructions: Apixaban (By mouth), Chest Pain (DC), Help Prevent Suicide in Older Adults (DC) Stand Alone Forms: General Discharge Information Follow-up/Referrals: Dylan Weaver MD [Primary Care Provider] - Discharge Medications: New hydrocodone-acetaminophen 5-300 mg tablet 1 tablet PO Q6H PRN (Reason: pain) Qty: 30 0RF Continued famotidine 40 mg tablet 40 mg PO HS balsalazide 750 mg capsule 2,250 mg PO TID metoprolol succinate 25 mg tablet extended release 24 hr 25 mg PO DAILY Eliquis 5 mg tablet 5 mg PO DAILY hydrocortisone 2.5 % cream with perineal applicator 1 applic topical BID PRN (Reason: Itching) Rx Instructions: Apply a thin layer topically to affected area BID. Discontinued celecoxib 200 mg capsule 200 mg PO DAILY Date of admission: 07/28/23 17:23 Primary Care Provider: Dylan Weaver Admitting Provider: Padmini Thacker Attending physician on admission: Adam Dunlap Condition: Guarded Prognosis
[2023-07-29] MEDS: METOPROLOL SUCCINATE EXT REL 25 MG TABCR PO (11:18)
== END 2023-07-29 13:10 | disposition home or self-care (01) ==
LOC: ANHED 15:46 → ANHIMU 19:23
PROVIDERS: Preventive Medicine Aerospace Medicine; Admitting Provider Internal Medicine; Emergency Provider General Practice; PCP Emergency Medicine; Visit Provider Hospitalist
DX: C79.9 Secondary malignant neoplasm of unspecified site (principal); R07.9 Chest pain, unspecified; R74.8 Abnormal levels of other serum enzymes; R77.8 Other specified abnormalities of plasma proteins; I71.43 Infrarenal abdominal aortic aneurysm, without rupture; R18.8 Other ascites; R63.0 Anorexia; Z68.23 Body mass index [BMI] 23.0-23.9, adult; K21.9 Gastro-esophageal reflux disease without esophagitis; J90 Pleural effusion, not elsewhere classified; R94.31 Abnormal electrocardiogram [ECG] [EKG]; R00.0 Tachycardia, unspecified; I48.91 Unspecified atrial fibrillation; E55.9 Vitamin D deficiency, unspecified; Z79.01 Long term (current) use of anticoagulants; Z79.899 Other long term (current) drug therapy; Z82.49 Family history of ischemic heart disease and other diseases of the circulatory system
CPT/HCPCS: 36415; 71046; 71275; 74177; 80053; 83690; 84484; 85025; 85055; 85610; 85730; 93005; 96360; 96361; 99285; A9270; G0378; J7030; Q9967